=== PATIENT | male | born 1980 | race Two or more races ===

== ENCOUNTER 2017-05-29 23:34 | Emergency (ER) | payer OTHER ==
[2017-05-29 23:45] VITALS: BP 115/73; BMI 31.1
[2017-05-30 00:58] VITALS: PULSE 95
[2017-05-30 02:11] VITALS: TEMP 99.5
--- NOTE | 2017-05-30 02:30 | PDOC ---
History of Present Illness - General Chief Complaint: Headache Stated Complaint: ACHES AND PAINS, SUBJECTIVE FEVER, HEADACHE Time Seen by Provider: 05/30/17 00:50 - History of Present Illness Initial Comments: This otherwise healthy 36-year-old man presents with a few day history of intermittent headaches/nasal congestion and a one-day history of myalgias, right -sided headache , subjective fever. Patient has not had any recent travel and denies insect bite/tick embedding. Patient states that he rarely travels outside into wooded areas. He notes that he has had increasing facial discomfort and nasal congestion although he has not had any purulent nasal discharge. He has a history of environmental ALLERGIES but no known previous episodes of sinusitis. There is a family history of migraine headache the patient has never had a diagnosis of migraine. Patient has been taking ibuprofen based analgesics for the last 24 hours to control his headache pain and subjective fever Past History - Past Medical History Allergies/Adverse Reactions: Allergies Allergy/AdvReac Type Severity Reaction Status Date / Time No Known Allergies Allergy Unverified 05/29/17 23:39 Home Medications: Ambulatory Orders Amoxicillin/Potassium Clav [Augmentin 875-125 Tablet] 1 each PO BID #14 tablet 05/30/17 Other medical history: EAR INFECTIONS - Psycho/Social/Smoking Cessation Hx Anxiety: No Suicidal Ideation: No Smoking History: Never smoked Review of Systems - Review of Systems Able to Perform ROS?: Yes Comments:: 12 point review of systems is negative except for what is noted in the history of present illness *Physical Exam - Vital Signs Last Vital Signs Temp Pulse Resp BP Pulse Ox 99.5 F 95 H 16 115/73 98 05/30/17 02:00 05/30/17 00:57 05/29/17 23:41 05/29/17 23:41 05/30/17 00:57 - Physical Exam Comments: GENERAL: Adult male, alert and oriented 3, in mild distress secondary to right- sided headache HEAD: Normal with no signs of trauma. Tenderness at right ethmoid/right frontal sinuses EYES: PERRLA, EOMI, sclera anicteric, conjunctiva clear. ENT: Ears normal, nares patent, oropharynx clear without exudates. Dry mucous membranes. NECK: Normal range of motion, supple without lymphadenopathy, JVD, or masses. LUNGS: Breath sounds equal, clear to auscultation bilaterally. No wheezes, and no crackles. HEART:Regular rate and rhythm, normal S1 and S2 without murmur, rub or gallop. ABDOMEN:.normal bowel sounds No guarding,tenderness or rebound.No masses No distention. EXTREMITIES: Normal range of motion, no edema. No clubbing or cyanosis. No erythema, or tenderness. NEUROLOGICAL: Cranial nerves II through XII grossly intact. Normal speech. No focal neurological deficits. MUSCULOSKELETAL: Back mild tenderness bilateral trapezius muscles, no CVA tenderness SKIN: Warm, Dry, normal turgor, no rashes or lesions noted. Progress Note - Progress Note Progress Note: This otherwise healthy 36-year-old man presents with history of subjective fever , right-sided headache with nasal congestion/facial fullness. Exam shows some tenderness over the right ethmoid/right frontal sinuses. Other than tachycardia , low-grade fever dry mucus membranes and some localized tenderness of bilateral trapezius muscles, the remainder of exam is unremarkable. Patient is given a liter of normal saline and 30 mg Toradol IV for hydration and analgesia. Patient feels significantly better after IV hydration and Toradol. Since patient has nasal congestion and tenderness over right ethmoid/frontal sinuses, he will be started on Augmentin 875/125 for presumed acute sinusitis. The patient will not go to school tomorrow, resting and drinking plenty of fluids. He should follow-up with his general doctor within the next 5 days. He should return to the emergency room if he has severe headache or persistent high fever *DC/Admit/Observation/Transfer Diagnosis at time of Disposition: Headache Qualifiers: Headache type: other headache syndrome Qualified Code(s): G44.89 - Other headache syndrome Sinusitis Qualifiers: Sinusitis location: ethmoidal Chronicity: acute Recurrence: non-recurrent Qualified Code(s): J01.20 - Acute ethmoidal sinusitis, unspecified - Discharge Dispostion Disposition: HOME Condition at time of disposition: Stable - Prescriptions Prescriptions: Amoxicillin/Potassium Clav [Augmentin 875-125 Tablet] 1 each PO BID #14 tablet - Patient Instructions Printed Discharge Instructions: DI for Sinusitis Additional Instructions: Rest; drink plenty fluids Ibuprofen/naproxen/acetaminophen as needed for pain Augmentin 875/125 twice a day for one week (take with food) No school tomorrow Follow-up with your general doctor within the next 5 days - Post Discharge Activity Work/School Note: Back to School
[2017-05-30] MEDS ORDERED: KETOROLAC TROMETHAMINE 30 MG/1 ML VIAL IVPUSH ONE (03:44)
[2017-05-30] MEDS ORDERED: KETOROLAC TROMETHAMINE 30 MG/1 ML VIAL ONE (03:45)
[2017-05-30] MEDS ORDERED: LEVOFLOXACIN 500 MG TABLET (FP) PO ONE (04:18)
[2017-05-30] MEDS ORDERED: LEVOFLOXACIN 500 MG TABLET (FP) ONE (04:26)
== END 2017-05-30 04:31 | disposition home or self-care (01) ==
LOC: FER 23:34
PROC: 3E0333Z Introduction of Anti-inflammatory into Peripheral Vein, Percutaneous Approach (ICD-10-PCS; principal; 2017-05-29)
DX: G44.89 Other headache syndrome (principal); J01.20 Acute ethmoidal sinusitis, unspecified
CPT/HCPCS: 99282-25